=== PATIENT | male | born 1950 | race African-American/Black ===

== ENCOUNTER 2017-05-05 06:01 | Inpatient (IN) | payer MEDICARE, BC ==
[~2017-05-05] VITALS: Ht 170.2 cm; Wt 101.6 kg
[2017-05-05] MEDS ORDERED: CEFAZOLIN 1 GM ONE (06:52)
[2017-05-05] MEDS ORDERED: methylPREDNISolone ACETATE 80 MG/ML VIAL ONE (06:52)
[2017-05-05] MEDS ORDERED: HEMOSTATIC MATRIX 10 ML 1 EACH PAD MC ONE (06:52)
[2017-05-05] MEDS ORDERED: MORPHINE SULFATE INJ 4 MG/ML DISP.SYRIN ONE ×2 (06:54→11:59)
[2017-05-05] MEDS ORDERED: PROPOFOL 0 ML ONE (06:54)
[2017-05-05] MEDS ORDERED: ROCURONIUM BROMIDE 50 MG/5 ML ONE ×2 (06:54→10:23)
[2017-05-05] MEDS ORDERED: MIDAZOLAM HCL 2 MG/2ML VIAL ONE (06:54)
[2017-05-05] MEDS ORDERED: PROPOFOL 100 ML ONE ×2 (06:55→10:23)
[2017-05-05 07:00] VITALS: BP 128/79
[2017-05-05] MEDS ORDERED: GELATIN SPONGE,ABSORBABLE 1 EA SPONGE TP ONE (07:03)
[2017-05-05] MEDS ORDERED: BUPIVACAINE 0.25% 75 MG/30 ML VIAL ONE (07:05)
[2017-05-05] MEDS ORDERED: SUCCINYLCHOLINE CHLORIDE 20 MG/ML VIAL ONE (07:27)
[2017-05-05] MEDS ORDERED: CEFAZOLIN 2 GM in IV D5W 50 ML IV ONE (07:30)
[2017-05-05 08:00] VITALS: BP 128/79
[2017-05-05] MEDS ORDERED: LORA10TA68 PO (08:56)
[2017-05-05] MEDS ORDERED: PRAV10TA40 PO (08:56)
[2017-05-05] MEDS ORDERED: METH10TA4 PO (08:56)
[2017-05-05] MEDS ORDERED: TERA2CAP4 PO (08:56)
[2017-05-05] MEDS ORDERED: MOME17SP BNOSTRILS (08:56)
[2017-05-05] MEDS ORDERED: LOSA100T15 PO (08:56)
[2017-05-05] MEDS ORDERED: OXYB10TA4 PO (08:56)
[2017-05-05] MEDS ORDERED: PENT400T2 PO (08:56)
[2017-05-05] MEDS ORDERED: ASPI-1169 PO (08:56)
[2017-05-05] MEDS ORDERED: AMLO10TA2 PO (08:56)
[2017-05-05] MEDS ORDERED: MULT-1168 PO (08:56)
[2017-05-05] MEDS ORDERED: GABA-534 PO (08:56)
[2017-05-05] MEDS ORDERED: TIZA4TAB4 PO (08:56)
[2017-05-05] MEDS ORDERED: DEXAMETHASONE SOD PHOSPHATE 4 MG/ML VIAL IV SCH (11:30)
[2017-05-05] MEDS ORDERED: ONDANSETRON HCL/PF 4 MG/2 ML VIAL ONE (11:59)
[2017-05-05] MEDS ORDERED: THROMBIN (BOVINE) 5,000 UNITS VIAL TP ONE (12:26)
[2017-05-05] MEDS ORDERED: MORPHINE SULFATE INJ 2 MG/ML DISP.SYRIN IM PRN (13:00)
[2017-05-05] MEDS ORDERED: HYDROCODONE/APAP 5/325MG 1 EACH TABLET PO PRN (13:00)
[2017-05-05] MEDS ORDERED: PENTOXIFYLLINE 400 MG TABLET.SA PO SCH (13:00)
[2017-05-05] MEDS: GABAPENTIN 300 MG CAPSULE PO SCH ×3 (13:00→21:28)
[2017-05-05] MEDS: METHYLPHENIDATE HCL (10MG) 10 MG TABLET PO SCH ×2 (13:00→17:43)
[2017-05-05] MEDS: DEXAMETHASONE SOD PHOSPHATE 4 MG/ML VIAL IV SCH ×2 (14:16→20:13)
[2017-05-05 14:34] LABS: HEMATOCRIT 45 % (39-51); HEMOGLOBIN 14.8 g/dL (13.5-17.5); LYMPHOCYTES # (AUTO) 0.7 /CMM (0.8-4.8); LYMPHOCYTES % (AUTO) 6.4 % (20.0-44.0); MEAN CORPUSCULAR HEMOGLOBIN 31 PG (26.0-33.0); MEAN CORPUSCULAR HGB CONC 33 g/dl (31.0-36.0); MEAN CORPUSCULAR VOLUME 93 fL (80-96); MONOCYTES % (AUTO) 0.3 % (2.0-12.0); NEUTROPHILS % (AUTO) 93.3 % (43.0-81.0); PLATELET COUNT (AUTO) 240 /CMM (150-450); RDW COEFFICIENT OF VARIATION 14.8 (11.5-15.0); RED BLOOD CELL COUNT(AUTO) 4.84 MIL/uL (4.5-6.0); WHITE BLOOD COUNT (AUTO) 10.7 K/uL (4.3-11.0)
[2017-05-05 14:43] LABS: CALCIUM, SERUM 8.8 mg/dL (8.5-10.1); CREATININE 1.2 mg/dL (0.6-1.3); POTASSIUM 4.1 mmol/L (3.5-5.1)
[2017-05-05 16:00] VITALS: BP_SYST 123; BP_SYST 144; BP_DIAS 67; BP_DIAS 77
[2017-05-05] MEDS: HEPARIN SODIUM, PORCINE 5000 UNITS/1 ML VIAL SQ SCH (16:00)
[2017-05-05] MEDS: CEFAZOLIN 2 GM in IV D5W 50 ML IV SCH ×2 (16:11→23:22)
[2017-05-05] MEDS: IV D5/ 0.9% NACL 1,000 ML IV PRN (16:12)
[2017-05-05] MEDS ORDERED: ACETAMINOPHEN 650 MG/20.3 ML UDC PO PRN (16:30)
[2017-05-05] MEDS: TIZANIDINE HCL 4 MG TABLET PO SCH (17:43)
[2017-05-05 20:00] VITALS: BP_SYST 143; BP_SYST 148; BP_DIAS 75; BP_DIAS 78
[2017-05-05 21:20] VITALS: BP 146/75
[2017-05-05] MEDS ORDERED: TERAZOSIN HCL 1 MG CAPSULE PO SCH (22:00)
[2017-05-05] MEDS ORDERED: ATORVASTATIN 10 MG TABLET PO SCH (22:00)
[2017-05-05 23:52] VITALS: BP 117/69
[2017-05-06] VITALS: BP 117/69
[2017-05-06] MEDS: DEXAMETHASONE SOD PHOSPHATE 4 MG/ML VIAL IV SCH ×2 (01:57→09:15)
[2017-05-06 05:00] VITALS: BP 131/70
[2017-05-06] MEDS: IV D5/ 0.9% NACL 1,000 ML IV PRN (05:12)
[2017-05-06] MEDS: HEPARIN SODIUM, PORCINE 5000 UNITS/1 ML VIAL SQ SCH ×2 (05:13→12:05)
[2017-05-06 07:53] LABS: HEMATOCRIT 41 % (39-51); HEMOGLOBIN 13.9 g/dL (13.5-17.5); LYMPHOCYTES % (AUTO) 7.3 % (20.0-44.0); MEAN CORPUSCULAR HEMOGLOBIN 32 PG (26.0-33.0); MEAN CORPUSCULAR HGB CONC 34 g/dl (31.0-36.0); MEAN CORPUSCULAR VOLUME 94 fL (80-96); MONOCYTES # (AUTO) 0.6 /CMM (0.1-1.30); MONOCYTES % (AUTO) 4.6 % (2.0-12.0); NEUTROPHILS % (AUTO) 88.1 % (43.0-81.0); PLATELET COUNT (AUTO) 239 /CMM (150-450); RDW COEFFICIENT OF VARIATION 14.8 (11.5-15.0); RED BLOOD CELL COUNT(AUTO) 4.37 MIL/uL (4.5-6.0); WHITE BLOOD COUNT (AUTO) 13.6 K/uL (4.3-11.0)
[2017-05-06 08:00] VITALS: BP 139/78
[2017-05-06 08:01] LABS: CALCIUM, SERUM 8.8 mg/dL (8.5-10.1); CREATININE 1.1 mg/dL (0.6-1.3); MAGNESIUM 1.7 mg/dL (1.8-2.4); PHOSPHORUS 2.3 mg/dL (2.5-4.9); POTASSIUM 4.2 mmol/L (3.5-5.1)
[2017-05-06] MEDS ORDERED: MOMETASONE FUROATE NASAL SUSP 17 GM BOTTLE SCH (09:00)
[2017-05-06] MEDS ORDERED: LORATADINE 10 MG TABLET PO SCH (09:00)
[2017-05-06] MEDS ORDERED: LOSARTAN POTASSIUM 50 MG TABLET PO SCH (09:00)
[2017-05-06] MEDS ORDERED: AMLODIPINE BESYLATE 10 MG TABLET PO SCH (09:00)
[2017-05-06] MEDS ORDERED: OXYBUTYNIN CHLORIDE ER 5 MG TAB PO SCH (09:00)
[2017-05-06] MEDS: TIZANIDINE HCL 4 MG TABLET PO SCH (09:15)
[2017-05-06] MEDS: METHYLPHENIDATE HCL (10MG) 10 MG TABLET PO SCH ×2 (09:15→11:42)
[2017-05-06] MEDS: GABAPENTIN 300 MG CAPSULE PO SCH ×2 (09:15→12:00)
[2017-05-06] MEDS: PENTOXIFYLLINE 400 MG TABLET.SA PO SCH ×2 (09:15→12:00)
[2017-05-06 09:21] VITALS: BP 139/78
[2017-05-06] MEDS ORDERED: DEXAMETHASONE SOD PHOSPHATE 4 MG/ML VIAL IV SCH (09:30)
[2017-05-06] MEDS ORDERED: HYDR-548 PO (10:23)
[2017-05-06] MEDS: Magnesium 1GM/D5W 100ML PREMIX 100 ML IV SCH ×2 (10:40→11:41)
[2017-05-06] MEDS ORDERED: K PHOS NEUTRAL 250 MG TABLET PO ONE (13:30)
== END 2017-05-06 14:21 | disposition home or self-care (01) | DRG 472 ==
LOC: DS 06:01 → MED 06:03
PROVIDERS: ADMIT Neurological Surgery; ATTEND Neurological Surgery
PROC: 0RG20A0 Fusion of 2 or more Cervical Vertebral Joints with Interbody Fusion Device, Anterior Approach, Anterior Column, Open Approach (ICD-10-PCS; 2017-05-05)
PROC: 0RB30ZZ Excision of Cervical Vertebral Disc, Open Approach (ICD-10-PCS; principal; 2017-05-05 07:30)
DX: M48.02 Spinal stenosis, cervical region (principal); M47.12 Other spondylosis with myelopathy, cervical region; M47.22 Other spondylosis with radiculopathy, cervical region; G62.9 Polyneuropathy, unspecified; E78.5 Hyperlipidemia, unspecified; I10 Essential (primary) hypertension; Z87.891 Personal history of nicotine dependence; N40.0 Benign prostatic hyperplasia without lower urinary tract symptoms; R73.9 Hyperglycemia, unspecified; Z98.1 Arthrodesis status
CPT/HCPCS: 36415; 72040-TC; 80048-TC; 83735-TC; 84100-TC; 85025-TC; 88304-TC; 88305-TC; 88311-TC; A4606; J0330; J0690; J1040; J1100; J1644; J2250; J2270; J2405; J3475; J3490; J7042; J7060; Z7610